=== PATIENT | female | born 1960 | race Caucasian/White ===

== ENCOUNTER 2016-10-14 14:03 | Outpatient (CLI) | payer OTHER | END 2016-10-14 14:04 | disposition home or self-care (01) | DX: Z12.31 Encounter for screening mammogram for malignant neoplasm of breast (principal) ==

== ENCOUNTER 2017-02-12 11:28 | Outpatient (CLI) | payer OTHER ==
[2017-02-12 17:59] LABS: BASOPHILS % (AUTO) 0.6 %; EOSINOPHILS # (AUTO) 0.2 10^3/uL (0.0-0.7); EOSINOPHILS % (AUTO) 3.5 %; HCT - HEMATOCRIT 44.7 % (37.0-47.0); HGB - HEMOGLOBIN 15.1 g/dL (12.0-16.0); LYMPHOCYTES # (AUTO) 2.6 10^3/uL (1.5-3.5); LYMPHOCYTES % (AUTO) 41.6 %; MEAN CORPUSCULAR HEMOGLOBIN 30.5 pg (27.0-31.0); MEAN CORPUSCULAR HGB CONC 33.7 g/dL (32.0-36.0); MEAN CORPUSCULAR VOLUME 90.6 fL (81.0-99.0); MEAN PLATELET VOLUME 9.3 fL (7.9-10.8); MONOCYTES # (AUTO) 0.5 10^3/uL (0.0-1.0); MONOCYTES % (AUTO) 7.7 %; NEUTROPHILS # (AUTO) 2.9 10^3/uL (1.5-6.6); NEUTROPHILS % (AUTO) 46.6 %; NUCLEATED RED BLOOD CELLS AUTO 0.1 /100WBC; RED BLOOD COUNT 4.94 10^6/uL (4.20-5.40); UNCORRECTED WHITE BLOOD COUNT 6.2 x10^3/uL; WHITE BLOOD COUNT 6.2 x10^3/uL (4.8-10.8)
[2017-02-12 18:09] LABS: ALBUMIN/GLOBULIN RATIO 1.6 (1.0-2.2); BILIRUBIN,TOTAL 0.3 mg/dL (0.2-1.0); CALCIUM 9.4 mg/dL (8.5-10.3); CREATININE 0.8 mg/dL (0.4-1.0); POTASSIUM 4.5 mmol/L (3.5-5.0); TOTAL PROTEIN 7.2 g/dL (6.7-8.2)
== END 2017-02-12 11:29 | disposition home or self-care (01) ==
LOC: LAB.F 11:28
PROVIDERS: ATTEND Internal Medicine
DX: Z79.899 Other long term (current) drug therapy (principal); Z13.29 Encounter for screening for other suspected endocrine disorder; N39.9 Disorder of urinary system, unspecified
CPT/HCPCS: 36415; 80053; 84443; 85025

== ENCOUNTER 2017-03-24 11:22 | Outpatient (CLI) | payer OTHER ==
--- NOTE | 2017-03-24 13:25 | Ultrasound Report ---
PELVIC ULTRASOUND: 03/24/2017 CLINICAL INDICATION: Irregular bleeding. TECHNIQUE: Transabdominal pelvic ultrasound performed for global evaluation. Transvaginal pelvic ul trasound performed for detailed evaluation. Real-time scanning performed and static images obtained. FINDINGS: The uterus is anteverted, measuring 7.4 x 3.8 x 3.3 cm. The endometrial echo complex treva ures 4 mm. A nabothian cyst is incidentally noted in the cervix. No focal myometrial lesion is seen . The right ovary measures 2.3 x 1.4 x 1.4 cm, and contains a 1-cm follicle. The left ovary measure s 1.5 x 1.2 x 0.7 cm, and appears unremarkable. No free fluid is present. IMPRESSION: NORMAL PELVIC ULTRASOUND. JOB #: [id number] EXT JOB #:[id number]
== END 2017-03-24 11:23 | disposition home or self-care (01) ==
LOC: DI 11:22
PROVIDERS: ATTEND Nurse Practitioner Obstetrics & Gynecology
DX: N92.5 Other specified irregular menstruation (principal)
CPT/HCPCS: 76830; 76856

== ENCOUNTER 2018-01-15 18:24 | Emergency (ER) | payer OTHER ==
[2018-01-15 19:28] LABS: GLUCOSE, URINE (UA) NEGATIVE (NEGATIVE); KETONES,URINE (UA) NEGATIVE (NEGATIVE); LEUKOCYTE ESTERASE, URINE NEGATIVE (NEGATIVE); NITRITE,URINE NEGATIVE (NEGATIVE); OCCULT BLOOD,URINE SMALL (NEGATIVE); PROTEIN,URINE TRACE mg/dL (NEGATIVE); UROBILINOGEN,URINE 2 E.U./dL (NORMAL)
[2018-01-15 19:36] LABS: BACTERIA,URINE None Seen /HPF (None Seen); BILIRUBIN,URINE NEGATIVE (NEGATIVE); CLARITY,URINE CLEAR (CLEAR); ICTOTEST,URINE NEGATIVE; RBC,URINE 0-5 /HPF (0-5); SQUAMOUS EPITHELIAL CELL,UR MOD Squamous (<= Few)
[2018-01-15] MEDS ORDERED: SODIUM CHLORIDE 0.9% 1,000 ML IV ONE (20:31)
[2018-01-15 20:49] LABS: BASOPHILS % (AUTO) 0.3 %; EOSINOPHILS # (AUTO) 0.1 10^3/uL (0.0-0.7); EOSINOPHILS % (AUTO) 2.5 %; HGB - HEMOGLOBIN 14.4 g/dL (12.0-16.0); LYMPHOCYTES # (AUTO) 1.6 10^3/uL (1.5-3.5); LYMPHOCYTES % (AUTO) 33.6 %; MEAN CORPUSCULAR HEMOGLOBIN 30.4 pg (27.0-31.0); MEAN CORPUSCULAR HGB CONC 33.7 g/dL (32.0-36.0); MEAN CORPUSCULAR VOLUME 90.2 fL (81.0-99.0); MEAN PLATELET VOLUME 8.6 fL (7.9-10.8); MONOCYTES # (AUTO) 0.4 10^3/uL (0.0-1.0); MONOCYTES % (AUTO) 8.5 %; NEUTROPHILS # (AUTO) 2.6 10^3/uL (1.5-6.6); NEUTROPHILS % (AUTO) 55.1 %; PLT - PLATELET COUNT 166 10^3/uL (130-450); RED BLOOD COUNT 4.74 10^6/uL (4.20-5.40); RED CELL DISTRIBUTION WIDTH 12.9 % (12.0-15.0); WHITE BLOOD COUNT 4.7 x10^3/uL (4.8-10.8)
[2018-01-15 21:26] LABS: ALBUMIN 4.3 g/dL (3.2-5.5); ALBUMIN/GLOBULIN RATIO 1.3 (1.0-2.2); BILIRUBIN,DIRECT 1.5 mg/dL (0.1-0.5); BILIRUBIN,TOTAL 2.6 mg/dL (0.2-1.0); CALCIUM 9.1 mg/dL (8.5-10.3); CREATININE 0.9 mg/dL (0.4-1.0); TOTAL PROTEIN 7.6 g/dL (6.7-8.2)
--- NOTE | 2018-01-15 21:35 | ED Physician Documentation ---
PD HPI ABD PAIN - Stated complaint Stated Complaint: BK PX/FEMALE - Chief complaint Chief Complaint: Back Pain - History obtained from History obtained from: Patient - History of Present Illness Timing - onset: How many days ago Timing - details: Intermittant, Waxing and waning Quality: Cramping, Aching Location: RUQ Radiation: Right flank Worsened by: Eating, Position Associated symptoms: Nausea, Diarrhea. No: Fever, Vomiting, Constipation Similar symptoms before: No diagnosis Recently seen: Not recently seen - Treatment prior to arrival Treatment prior to arrival: Patient is a 57 year old female with no significant past medical history who is presenting to the emergency department for right sided flank pain. Patient states that it has been going off and on for the last week. patient also reports some nausea with it and tactile fevers. Patient reports dark, foul smelling urine. Review of Systems Constitutional: reports: Fever, Chills Eyes: reports: Reviewed and negative Ears: reports: Reviewed and negative Cardiac: denies: Chest pain / pressure Respiratory: denies: Dyspnea, Cough GI: reports: Abdominal Pain, Nausea, Vomiting, Diarrhea : reports: Dysuria, Other (dark, foul smelling) Musculoskeletal: reports: Back pain Immunocompromised: denies: Immunocompromised PD PAST MEDICAL HISTORY - Past Medical History Past Medical History: Yes Cardiovascular: None, Other Respiratory: None GI: None : None HEENT: None Psych: Depression Musculoskeletal: Osteoarthritis, Chronic back pain, Other Derm: None - Past Surgical History 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 - Present Medications Home Medications: Ambulatory Orders Medication Instructions Recorded Confirmed Cyclobenzaprine [Flexeril] 1 tab ORAL QID 06/16/14 06/16/14 Estradiol 1 tab ORAL DAILY 06/16/14 06/16/14 Gabapentin 1 tab ORAL DAILY 06/16/14 06/16/14 medroxyPROGESTERone [Provera] 1 tab ORAL DAILY 06/16/14 06/16/14 oxyCODONE [Roxicodone] 0.5 tab ORAL DAILY 06/16/14 06/16/14 - Allergies Allergies/Adverse Reactions: Allergies Allergy/AdvReac Type Severity Reaction Status Date / Time No Known Drug Allergies Allergy Verified 02/04/13 11:00 - Social History Does the pt smoke?: Yes Smoking Status: Current every day smoker Does the pt drink ETOH?: Yes Does the pt have substance abuse?: Yes Substance Use and Type: Marijuana - Immunizations Immunizations are current?: No Immunizations: TDAP >10years/unknown - POLST Patient has POLST: No PD ED PE NORMAL - Vitals Vital signs reviewed: Yes - General General: Alert and oriented X 3 - HEENT HEENT: Atraumatic - Neck Neck: Supple, no meningeal sign - Cardiac Cardiac: RRR - Respiratory Respiratory: No respiratory distress - Abdomen Abdomen: Soft - Derm Derm: Normal color, Warm and dry - Extremities Extremities: No deformity - Neuro Neuro: Alert and oriented X 3, No motor deficit, Normal speech Eye Opening: Spontaneous PD ED PE EXPANDED - HEENT HEENT: Dry mucous membranes - Abdomen Abdomen: Tender to palpation, RUQ. No: Rebound, Guarding Results - Vitals Vitals: Vital Signs - 24 hr 01/15/18 01/15/18 18:39 22:34 Temperature 36.8 C 36.5 C Heart Rate 74 64 Respiratory 14 12 Rate Blood Pressure 144/85 H 142/73 H O2 Saturation 97 100 Oxygen O2 Source Room air - Labs Labs: Laboratory Tests 01/15/18 01/15/18 01/15/18 19:20 20:40 20:40 WBC 4.7 L RBC 4.74 Hgb 14.4 Hct 42.8 MCV 90.2 MCH 30.4 MCHC 33.7 RDW 12.9 Plt Count 166 MPV 8.6 Neut # 2.6 Lymph # 1.6 Cochran # 0.4 Eos # 0.1 Baso # 0.0 Absolute Nucleated RBC 0.00 Nucleated RBC % 0.0 Sodium 135 Potassium 3.6 Chloride 101 Carbon Dioxide 27 Anion Gap 7.0 BUN 14 Creatinine 0.9 Estimated GFR (MDRD) 65 L Glucose 111 H Calcium 9.1 Total Bilirubin 2.6 H Direct Bilirubin 1.5 H AST 482 H ALT 674 H Alkaline Phosphatase 116 Total Protein 7.6 Albumin 4.3 Globulin 3.3 Albumin/Globulin Ratio 1.3 Lipase 28 Urine Color YELLOW Urine Clarity CLEAR Urine pH 8.0 H Ur Specific [place] 1.010 Urine Protein TRACE Urine Glucose (UA) NEGATIVE Urine Ketones NEGATIVE Urine Occult Blood SMALL H Urine Nitrite NEGATIVE Urine Bilirubin NEGATIVE Urine Urobilinogen 2 H Ur Leukocyte Esterase NEGATIVE Urine RBC 0-5 Urine WBC 0-3 Ur Squamous Epith Cells MOD Squamous H Urine Bacteria None Seen Ur Microscopic Review INDICATED Urine Culture Comments NOT INDICATED - Rads (name of study) ct abdomen and pelvis Radiology: Final report received, See rad report PD MEDICAL DECISION MAKING - ED course Complexity details: reviewed old records, reviewed results, re-evaluated patient , considered differential, d/w patient, d/w underwriting consultant ED course: Patient was seen and examined at bedside. Urine had already been collected. there were no signs of infection but there was bilirubin in the urine. IV access was gained and labs were drawn. patient was treated with a fluid bolus and zofran. When patient's labs returned she was found to have a transaminitis and elevated direct and indirect bilirubin. CT was ordered. When patient returned from imaging the results were reviewed. Patient's gall bladder was full of stones, and there were stones in the common bile duct. Developing infection was also possible. Patient was a [facility] patient and the case was discussed with their animal surgeon physician. After multiple phone calls arrangements were made for follow up tomorrow with a GI doctor in [facility]. patient was given copy of her records and was given detailed discharge and follow up instructions. ptient required no further work up and was stable for discharge with outpatient follow up. Departure - Departure Disposition: Home, Self Care Clinical Impression: Choledocholithiasis Condition: Good Instructions: ED Gallstone W Biliary Colic Follow-Up: kiko lowery [Other] Comments: Your symptoms today are being caused by multiple stones in your gallbadder and stones in your common bile duct. You will need to call the office of Dr. Kiko Lowery tomorrow morning at 8am. The number is [phone]. You should not eat anything tonight. You should bring your discs and your results with you. You may return to the emergency department at any time for new, worsening or uncontrollable symptoms. Discharge Date/Time: 01/16/18 00:52
[2018-01-15] MEDS ORDERED: IOPAMIDOL-300 100 ML VIAL ONE (21:56)
[2018-01-15 22:36] VITALS: BP 142/73
--- NOTE | 2018-01-15 22:40 | CT Report ---
EXAM: CT ABDOMEN AND PELVIS EXAM DATE: 01/15/2018 10:18 PM. CLINICAL HISTORY: Abd pain, transaminitis. COMPARISONS: None. TECHNIQUE: Routine helical CT imaging was performed through the abdomen and pelvis. IV contrast: 100M L ISOVUE 300. Enteric contrast: No. Reconstructions: Coronal and sagittal. In accordance with CT protocol optimization, one or more of the following dose reduction techniques w ere utilized for this exam: automated exposure control, adjustment of mA and/or KV based on patient s ize, or use of iterative reconstructive technique. FINDINGS: ABDOMEN: Lung Bases: Incompletely included lower lungs are grossly clear. Heart size is within normal limits. No basilar effusions. Liver: Unremarkable. Spleen: Unremarkable. Pancreas: Unremarkable. Gallbladder/Bile Ducts: Gallbladder is diffusely full of gallstones. Wall is enhancing with mild surr ounding pericholecystic inflammatory change. There is no gallbladder distention. There is common bile duct dilatation to 1 cm. There is choledocholithiasis with a couple stones visible in the distal com mon bile duct. Adrenal Glands: Unremarkable. Kidneys: No mass, calculi, or hydronephrosis. Peritoneum/Mesentery/Bowel: No free fluid, free air, or collection. No intestinal obstruction or inflammation. The appendix is within normal limits. Lymph nodes: No mesenteric, periportal, or retroperitoneal lymphadenopathy. Retroperitoneum: Abdominal aorta is nonaneurysmal. Portal vein is patent. Hepatic veins are patent. PELVIS: The bladder is unremarkable for the degree of distention. Uterus is present. No obvious abnor brenton enlarged adnexal masses or cysts. No pelvic lymphadenopathy. Bones: No suspicious osseous lesions. IMPRESSION: Choledocholithiasis and common bile duct dilatation. Gallbladder diffusely full of gallstones. Mild p ericholecystic stranding and enhancing gallbladder wall. Developing acute cholecystitis is not exclud ed. [facility] Referring Provider Line: [phone] SITE ID: [id number]
[2018-01-15] MEDS ORDERED: ONDANSETRON 4 MG/2 ML VIAL IVP STA (23:58)
[2018-01-16] MEDS ORDERED: IOPAMIDOL-300 100 ML VIAL IVP ONE (00:01)
[2018-01-16] MEDS ORDERED: ONDANSETRON ODT 4 MG Prepack 2 TL STA (00:34)
[2018-01-17 12:51] LABS: HEPATITIS A IGM NON-REACTIVE (NON-REACTIVE); HEPATITIS B CORE ANTIBODY IGM NON-REACTIVE (NON-REACTIVE); HEPATITIS B SURFACE ANTIGEN NON-REACTIVE (NON-REACTIVE); HEPATITIS C ANTIBODY NON-REACTIVE (NON-REACTIVE)
== END 2018-01-16 00:52 | disposition home or self-care (01) ==
LOC: ED 18:24
DX: K80.70 Calculus of gallbladder and bile duct without cholecystitis without obstruction (principal); F17.200 Nicotine dependence, unspecified, uncomplicated
CPT/HCPCS: 36415; 74177; 80053; 80074; 81001; 82248; 83690; 85025; 96361; 96374; 99283; 99284; Q9967; 81003; 87086

== ENCOUNTER 2018-01-20 12:12 | Outpatient (CLI) | payer OTHER ==
[2018-01-20 17:39] LABS: BASOPHILS % (AUTO) 0.4 %; EOSINOPHILS # (AUTO) 0.1 10^3/uL (0.0-0.7); EOSINOPHILS % (AUTO) 1.9 %; HGB - HEMOGLOBIN 14.2 g/dL (12.0-16.0); LYMPHOCYTES % (AUTO) 26.8 %; MEAN CORPUSCULAR HEMOGLOBIN 30.3 pg (27.0-31.0); MEAN CORPUSCULAR VOLUME 91.8 fL (81.0-99.0); MEAN PLATELET VOLUME 9.4 fL (7.9-10.8); MONOCYTES # (AUTO) 0.7 10^3/uL (0.0-1.0); MONOCYTES % (AUTO) 8.7 %; NEUTROPHILS # (AUTO) 4.7 10^3/uL (1.5-6.6); NEUTROPHILS % (AUTO) 62.2 %; PLT - PLATELET COUNT 196 10^3/uL (130-450); RED BLOOD COUNT 4.69 10^6/uL (4.20-5.40); RED CELL DISTRIBUTION WIDTH 13.1 % (12.0-15.0); WHITE BLOOD COUNT 7.5 x10^3/uL (4.8-10.8)
[2018-01-20 18:16] LABS: ALBUMIN 4.1 g/dL (3.2-5.5); ALBUMIN/GLOBULIN RATIO 1.1 (1.0-2.2); BILIRUBIN,TOTAL 1.1 mg/dL (0.2-1.0); CALCIUM 9.4 mg/dL (8.5-10.3); CREATININE 0.8 mg/dL (0.4-1.0); TOTAL PROTEIN 7.7 g/dL (6.7-8.2)
== END 2018-01-20 12:13 | disposition home or self-care (01) ==
LOC: LAB.F 12:12
PROVIDERS: ATTEND Internal Medicine
DX: K80.61 Calculus of gallbladder and bile duct with cholecystitis, unspecified, with obstruction (principal)
CPT/HCPCS: 36415; 80053; 85025

== ENCOUNTER 2018-02-11 10:24 | Outpatient (CLI) | payer OTHER ==
[2018-02-11 17:29] LABS: BASOPHILS % (AUTO) 0.4 %; EOSINOPHILS # (AUTO) 0.2 10^3/uL (0.0-0.7); EOSINOPHILS % (AUTO) 3.3 %; HGB - HEMOGLOBIN 14.5 g/dL (12.0-16.0); LYMPHOCYTES # (AUTO) 2.1 10^3/uL (1.5-3.5); LYMPHOCYTES % (AUTO) 38.2 %; MEAN CORPUSCULAR HGB CONC 33.1 g/dL (32.0-36.0); MEAN CORPUSCULAR VOLUME 93.7 fL (81.0-99.0); MEAN PLATELET VOLUME 9.6 fL (7.9-10.8); MONOCYTES # (AUTO) 0.4 10^3/uL (0.0-1.0); MONOCYTES % (AUTO) 7.4 %; NEUTROPHILS # (AUTO) 2.8 10^3/uL (1.5-6.6); NEUTROPHILS % (AUTO) 50.7 %; PLT - PLATELET COUNT 148 10^3/uL (130-450); RED BLOOD COUNT 4.68 10^6/uL (4.20-5.40); RED CELL DISTRIBUTION WIDTH 13.2 % (12.0-15.0); WHITE BLOOD COUNT 5.5 x10^3/uL (4.8-10.8)
[2018-02-11 17:47] LABS: ALBUMIN 4.1 g/dL (3.2-5.5); ALBUMIN/GLOBULIN RATIO 1.3 (1.0-2.2); ALKALINE PHOSPHATASE 67 IU/L (42-121); ALT ALANINE AMINOTRANSFERASE 33 IU/L (10-60); AST ASPARTATE AMINOTRANSFERASE 22 IU/L (10-42); BILIRUBIN,TOTAL 0.7 mg/dL (0.2-1.0); BUN - BLOOD UREA NITROGEN 19 mg/dL (6-20); CARBON DIOXIDE - CO2 27 mmol/L (21-32); CHLORIDE 102 mmol/L (101-111); CHOL/HDL RATIO 6.4 (<4.4); CHOLESTEROL 307 mg/dL; CREATININE 0.8 mg/dL (0.4-1.0); GFR - MDRD 74 (>89); GLUCOSE 92 mg/dL (70-100); HDL CHOLESTEROL 48 mg/dL; SODIUM 136 mmol/L (135-145); TOTAL PROTEIN 7.3 g/dL (6.7-8.2)
[2018-02-11 18:09] LABS: LDL CHOLESTEROL,DIRECT 175 mg/dL; LDLD/HDL RATIO 3.6 (<4.4)
== END 2018-02-11 10:25 | disposition home or self-care (01) ==
LOC: LAB.F 10:24
PROVIDERS: ATTEND Physician Assistant Medical
DX: Z00.00 Encounter for general adult medical examination without abnormal findings (principal); E78.5 Hyperlipidemia, unspecified
CPT/HCPCS: 36415; 80053; 80061; 83721; 84443; 85025

== ENCOUNTER 2018-03-14 16:27 | Emergency (ER) | payer OTHER ==
--- NOTE | 2018-03-14 16:44 | ED Physician Documentation ---
PD HPI ABD PAIN - Stated complaint Stated Complaint: NAUSEA/DIZZY/ABD PX - Chief complaint Chief Complaint: Abd Pain - History obtained from History obtained from: Patient - History of Present Illness Timing - onset: Yesterday (57-year-old woman who a couple of months ago had choledocholithiasis and had ERCP followed a day later by cholecystectomy and was feeling great for a month that started having recurrent symptoms about a month ago and over the last 24 hours has had more significant but still intermittent bandlike upper abdominal pain radiating to the back not related to eating with mild nausea but no vomiting. No fevers. Feels reminiscent of prior choledocholithiasis.) Review of Systems Ten Systems: 10 systems reviewed and negative Constitutional: denies: Fever, Chills Cardiac: denies: Chest pain / pressure, Palpitations Respiratory: denies: Dyspnea, Cough GI: reports: Abdominal Pain, Nausea. 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 - Present Medications Home Medications: Ambulatory Orders Medication Instructions Recorded Confirmed Cyclobenzaprine [Flexeril] 1 tab ORAL QID 06/16/14 06/16/14 Estradiol 1 tab ORAL DAILY 06/16/14 06/16/14 Gabapentin 1 tab ORAL DAILY 06/16/14 06/16/14 medroxyPROGESTERone [Provera] 1 tab ORAL DAILY 06/16/14 06/16/14 oxyCODONE [Roxicodone] 0.5 tab ORAL DAILY 06/16/14 06/16/14 - Allergies Allergies/Adverse Reactions: Allergies Allergy/AdvReac Type Severity Reaction Status Date / Time No Known Drug Allergies Allergy Verified 03/14/18 16:31 - Social History Does the pt smoke?: Yes Smoking Status: Current every day smoker Does the pt drink ETOH?: Yes Does the pt have substance abuse?: Yes - Family History Family history: reports: Non contributory - Immunizations Immunizations are current?: No Immunizations: TDAP >10years/unknown - POLST Patient has POLST: No PD ED PE NORMAL - Vitals Vital signs reviewed: Yes - General General: Alert and oriented X 3, No acute distress - HEENT HEENT: PERRL, EOMI - Neck Neck: Supple, no meningeal sign, No bony TTP - Cardiac Cardiac: RRR, No murmur - Respiratory Respiratory: No respiratory distress, Clear bilaterally - Abdomen Abdomen: Normal bowel sounds, Soft, Non tender - Back Back: No CVA TTP, No spinal TTP - Derm Derm: Normal color, Warm and dry - Extremities Extremities: No edema, No calf tenderness / cord - Neuro Neuro: Alert and oriented X 3, Normal speech - Psych Psych: Normal mood, Normal affect Results - Vitals Vitals: Vital Signs - 24 hr 03/14/18 03/14/18 16:29 20:04 Temperature 36.0 C L Heart Rate 63 64 Respiratory 16 17 Rate Blood Pressure 123/75 136/78 H O2 Saturation 100 98 Oxygen O2 Source Room air - Labs Labs: Laboratory Tests 03/14/18 03/14/18 17:15 17:15 WBC 5.1 RBC 4.83 Hgb 14.9 Hct 44.5 MCV 92.2 MCH 30.8 MCHC 33.4 RDW 13.3 Plt Count 187 MPV 8.8 Neut # (Auto) 3.3 Lymph # (Auto) 1.3 L Fleming # (Auto) 0.4 Eos # (Auto) 0.0 Baso # (Auto) 0.0 Absolute Nucleated RBC 0.00 Nucleated RBC % 0.0 Sodium 135 Potassium 3.8 Chloride 101 Carbon Dioxide 25 Anion Gap 9.0 BUN 13 Creatinine 0.8 Estimated GFR (MDRD) 74 L Glucose 94 Calcium 10.0 Total Bilirubin 3.5 H AST 624 H ALT 616 H Alkaline Phosphatase 104 Total Protein 8.0 Albumin 4.5 Globulin 3.5 Albumin/Globulin Ratio 1.3 Lipase 25 - Rads (name of study) RUQ sono Radiology: EMP read contemporaneously (Common bile duct prominence measuring 10 mm, no obvious choledocholithiasis or intrahepatic ductal dilatation, fatty liver.) PD MEDICAL DECISION MAKING - ED course ED course: 57-year-old woman who 2 months ago had choledocholithiasis with an ERCP followed by interval cholecystectomy had done well until she had increasing pain and now over the last 24 hours severe pain consistent with prior episode of choledocholithiasis although she declines pain and nausea medicine on initial evaluation. Nontender. Ultrasound does not show cleared choledocholithiasis but her labs do show an obstructive pattern again, noting that her alkaline phosphatase is normal, but was normal on day 1 as well. I spoke with Dr. Davidson, the on-call tunnel elastic operator lockstitch for [place] who recommended transfer to a facility capable of expedited ERCP or MRCP. She recommends against abx at this juncture. Spoke with Dr Sanches, resolution expert for [place] who will arrange for accepting MD and transport at 1918. Accepted by Dr. Miranda [facility] at 1999 and cobras were completed. - Sepsis Event Vital Signs: Vital Signs - 24 hr 03/14/18 03/14/18 16:29 20:04 Temperature 36.0 C L Heart Rate 63 64 Respiratory 16 17 Rate Blood Pressure 123/75 136/78 H O2 Saturation 100 98 Oxygen O2 Source Room air Departure - Departure Disposition: 02 Transfer Acute Care Hosp Clinical Impression: Biliary obstruction Condition: Stable
[2018-03-14 17:23] LABS: BASOPHILS % (AUTO) 0.4 %; EOSINOPHILS % (AUTO) 0.9 %; HGB - HEMOGLOBIN 14.9 g/dL (12.0-16.0); LYMPHOCYTES # (AUTO) 1.3 10^3/uL (1.5-3.5); LYMPHOCYTES % (AUTO) 26.5 %; MEAN CORPUSCULAR HEMOGLOBIN 30.8 pg (27.0-31.0); MEAN CORPUSCULAR HGB CONC 33.4 g/dL (32.0-36.0); MEAN CORPUSCULAR VOLUME 92.2 fL (81.0-99.0); MEAN PLATELET VOLUME 8.8 fL (7.9-10.8); MONOCYTES # (AUTO) 0.4 10^3/uL (0.0-1.0); MONOCYTES % (AUTO) 7.6 %; NEUTROPHILS # (AUTO) 3.3 10^3/uL (1.5-6.6); NEUTROPHILS % (AUTO) 64.6 %; PLT - PLATELET COUNT 187 10^3/uL (130-450); RED BLOOD COUNT 4.83 10^6/uL (4.20-5.40); RED CELL DISTRIBUTION WIDTH 13.3 % (12.0-15.0); WHITE BLOOD COUNT 5.1 x10^3/uL (4.8-10.8)
[2018-03-14 17:40] LABS: ALBUMIN 4.5 g/dL (3.2-5.5); ALBUMIN/GLOBULIN RATIO 1.3 (1.0-2.2); BILIRUBIN,TOTAL 3.5 mg/dL (0.2-1.0); CREATININE 0.8 mg/dL (0.4-1.0)
--- NOTE | 2018-03-14 18:45 | Ultrasound Report ---
Procedure Date: 03/14/2018 Accession Number: [id number] / [id number] Procedure: US - Abdomen Limited CPT Code: FULL RESULT: EXAM: ABDOMEN ULTRASOUND LIMITED, RUQ EXAM DATE: 03/14/2018 05:30 PM. CLINICAL HISTORY: RUQ pain, similar to prior CBD stone, eval CBD. COMPARISON: No ultrasound comparison. CT abdomen and pelvis 01/15/2018. TECHNIQUE: Real-time scanning was performed with static images obtained. FINDINGS: Liver: Pattern consistent with diffuse fatty infiltration redemonstrated. No mass. 15.3 cm. Main portal vein flow: Hepatopetal. Gallbladder: Surgical absent. Biliary System: CBD measures 10 mm, possibly without substantial interval change. No intrahepatic ductal dilatation Other: Right kidney appears unremarkable. No free fluid. IMPRESSION: 1. Status post cholecystectomy. Common bile duct prominence, measuring 10 mm. This is probably without substantial change and may not be clinically significant given the surgical history. No intrahepatic ductal dilatation. Clinical correlation recommended. 2. Diffuse fatty infiltration liver redemonstrated. [facility]
[2018-03-14] MEDS: SODIUM CHLORIDE 0.9% 1,000 ML IV ONE (20:20)
[2018-03-14] MEDS: ONDANSETRON 4 MG/2 ML VIAL IVP STA (22:05)
[2018-03-14 22:13] VITALS: BP 129/60
== END 2018-03-14 22:10 | disposition short-term general hospital (02) ==
LOC: ED 16:27
DX: K83.1 Obstruction of bile duct (principal); K76.0 Fatty (change of) liver, not elsewhere classified
CPT/HCPCS: 36415; 76705; 80053; 83690; 85025; 96361; 96374; 99283; 99284

== ENCOUNTER 2018-03-23 15:53 | Outpatient (CLI) | payer OTHER ==
[2018-03-23 19:33] LABS: ALBUMIN/GLOBULIN RATIO 1.2 (1.0-2.2); BILIRUBIN,TOTAL 0.7 mg/dL (0.2-1.0); CALCIUM 9.2 mg/dL (8.5-10.3); CREATININE 0.8 mg/dL (0.4-1.0); TOTAL PROTEIN 7.3 g/dL (6.7-8.2)
== END 2018-03-23 15:54 | disposition home or self-care (01) ==
LOC: LAB.R 15:53
PROVIDERS: ATTEND Internal Medicine
DX: K80.61 Calculus of gallbladder and bile duct with cholecystitis, unspecified, with obstruction (principal)
CPT/HCPCS: 80053

== ENCOUNTER 2018-08-06 17:53 | Outpatient (CLI) | payer OTHER ==
--- NOTE | 2018-08-07 19:03 | MRI Report ---
Reason: BACK PAIN WITH RADICULOPATHY Procedure Date: 08/06/2018 Accession Number: [id number] / [id number] Procedure: MRI - Lumbar Spine W/O CPT Code: FULL RESULT: EXAM: MRI LUMBAR SPINE WITHOUT CONTRAST EXAM DATE: 08/06/2018 06:10 PM. CLINICAL HISTORY: Back pain with radiculopathy. COMPARISON: None. TECHNIQUE: Multiplanar, multisequence T1-weighted and fluid-sensitive sequences of the lumbar spine from T12 to S1 without contrast. Other: None. FINDINGS: Spinal Canal: The conus terminates at L1. The conus medullaris and cauda equina are unremarkable. Alignment: No scoliosis or spondylolisthesis. Bone Marrow: Five [id number] lumbar vertebral bodies are assumed. No gross fractures or bone lesions. No bone marrow replacement. Disk Levels/Facets: T12-L1: Unremarkable. L1-L2: Moderate disk degeneration. Negative for spinal canal stenosis or foraminal stenosis. L2-L3: Unremarkable. L3-L4: Mild right facet joint arthrosis. Negative for spinal canal stenosis or foraminal stenosis. Preservation of disk height. L4-L5: Left posterolateral 2 mm disk protrusion. Negative for spinal canal stenosis or foraminal stenosis. Mild facet joint arthrosis. L5-S1: Posterior right paracentral 2 mm disk protrusion with small high signal annular fissure. Negative for spinal canal stenosis or foraminal stenosis. Mild left facet joint arthrosis. Musculature: Normal. No edema or fatty atrophy. Other: The partially visualized retroperitoneum is unremarkable. IMPRESSION: Unremarkable lumbar spine MRI. Comment: The following findings are so common in adults without low back pain that while we report their presence, they must be interpreted with caution and in the context of the clinical situation. (Reference Shyannk et al, Spine 2001) Prevalence of findings in patients without low back pain: Disk degeneration (any evidence): 92% Disk desiccation/T2 signal loss: 83% Disk height loss: 56% Disk bulge: 64% Disk protrusion: 32% Annular tear/high intensity zone: 38% [facility]
== END 2018-08-06 17:54 | disposition home or self-care (01) ==
LOC: DI 17:53
PROVIDERS: ATTEND Physician Assistant Medical
DX: M51.16 Intervertebral disc disorders with radiculopathy, lumbar region (principal); M51.17 Intervertebral disc disorders with radiculopathy, lumbosacral region
CPT/HCPCS: 72148

== ENCOUNTER 2018-08-31 12:56 | Outpatient (CLI) | payer OTHER ==
[2018-08-31 19:03] LABS: HGB - HEMOGLOBIN 14.4 g/dL (12.0-16.0); MEAN CORPUSCULAR HEMOGLOBIN 30.8 pg (27.0-31.0); MEAN CORPUSCULAR HGB CONC 33.5 g/dL (32.0-36.0); MEAN CORPUSCULAR VOLUME 92.1 fL (81.0-99.0); MEAN PLATELET VOLUME 8.7 fL (7.9-10.8); RED BLOOD COUNT 4.67 10^6/uL (4.20-5.40); RED CELL DISTRIBUTION WIDTH 13.3 % (12.0-15.0); WHITE BLOOD COUNT 7.7 x10^3/uL (4.8-10.8)
[2018-08-31 19:06] LABS: CRP - C-REACTIVE PROTEIN 1.4 mg/dL (0-1.0)
[2018-08-31 21:06] LABS: RHEUMATOID FACTOR NEGATIVE (Negative)
== END 2018-08-31 12:57 | disposition home or self-care (01) ==
LOC: LAB.F 12:56
PROVIDERS: ATTEND Physician Assistant Medical
DX: M25.50 Pain in unspecified joint (principal); M54.2 Cervicalgia
CPT/HCPCS: 36415; 84550; 85025; 85027; 85651; 86038; 86140; 86200; 86430

== ENCOUNTER 2019-06-21 15:05 | Outpatient (CLI) | payer OTHER ==
--- NOTE | 2019-06-21 17:12 | Ultrasound Report ---
Reason: MULTIPLE THYROID NODULES, PARATHYROID ABNORMALITY Procedure Date: 06/21/2019 Accession Number: [id number] / [id number] Procedure: US - Head or Neck Soft Tissue CPT Code: FULL RESULT: EXAM: THYROID ULTRASOUND EXAM DATE: 06/21/2019 04:00 PM. CLINICAL HISTORY: MULTIPLE THYROID NODULES, PARATHYROID ABNORMALITY. For follow-up COMPARISON: HEAD OR NECK SOFT TISSUE 04/01/2016 1:50 PM. Thyroid ultrasound 12/15/2013 TECHNIQUE: Real time sonographic imaging of the thyroid was performed by the slat basket maker. Multiple sales representative facility services static images were saved for review. FINDINGS: THYROID GLAND: Right Lobe: 5.2 x 1.6 x 1.4 cm, volume 6.1 cc. Normal background echotexture. Right Lobe Nodules: None. 1. Iso-to hypoechoic vascular lower pole nodule currently measures 1.9 x 0.9 x 1.1 cm, previously 0.9 x 0.8 x 0.4 cm on 04/01/2016 and 0.9 x 0.8 x 1.3 cm on 12/15/2013. 2. Posterior midpole hypoechoic solid nodule currently 0.9 x 0.7 x 0.7 cm, essentially stable compared to the 12/15/2013. The measurements reported of the 04/01/2016 ultrasound likely overestimated the size of the lesion. Left Lobe: 3.6 x 1.2 x 1 cm, volume 2.2 cc. Normal background echotexture. Left Lobe Nodules: Dominant midportion predominantly isoechoic vascular nodule currently measures 1 x 0.8 x 0.8 cm, essentially stable compared to the prior 2 studies allowing for technical variation. Isthmus: 0.3 cm AP. Isthmic Nodules: None. LYMPH NODES: No adenopathy demonstrated in the central or lateral compartment. OTHER: None. IMPRESSION: 1. The dominant left thyroid nodule and the midpole hypoechoic posterior right lobe nodule appear stable compared with 2013 allowing for technical variation. 2. The iso-to hypoechoic vascular right lower pole nodule appears to have increased slightly in length compared with 2014, currently measuring 1.9 x 0.9 x 1.1 cm, previously 1.3 x 0.9 x 0.8 cm. The nodule is somewhat ill-defined and precise measurements may vary slightly. Recommend follow-up thyroid ultrasound in 12 months. Management recommendations are based on 2015 [place] [employer] Management Guidelines for Adult Patients with Thyroid Nodules and Differentiated Thyroid Cancer. [facility]
== END 2019-06-21 15:06 | disposition home or self-care (01) ==
LOC: DI 15:05
PROVIDERS: ATTEND Physician Assistant Medical
DX: E04.2 Nontoxic multinodular goiter (principal); E21.5 Disorder of parathyroid gland, unspecified
CPT/HCPCS: 76536

== ENCOUNTER 2019-08-30 11:03 | Outpatient (CLI) | payer OTHER ==
[2019-08-30 17:29] LABS: BASOPHILS % (AUTO) 0.4 %; EOSINOPHILS # (AUTO) 0.2 10^3/uL (0.0-0.7); EOSINOPHILS % (AUTO) 1.9 %; HGB - HEMOGLOBIN 15.2 g/dL (12.0-16.0); LYMPHOCYTES # (AUTO) 2.6 10^3/uL (1.5-3.5); LYMPHOCYTES % (AUTO) 30.4 %; MEAN CORPUSCULAR HEMOGLOBIN 30.3 pg (27.0-31.0); MEAN CORPUSCULAR VOLUME 91.8 fL (81.0-99.0); MEAN PLATELET VOLUME 10.4 fL (7.9-10.8); MONOCYTES # (AUTO) 0.6 10^3/uL (0.0-1.0); MONOCYTES % (AUTO) 6.4 %; NEUTROPHILS # (AUTO) 5.2 10^3/uL (1.5-6.6); NEUTROPHILS % (AUTO) 60.5 %; PLT - PLATELET COUNT 212 10^3/uL (130-450); RED BLOOD COUNT 5.02 10^6/uL (4.20-5.40); RED CELL DISTRIBUTION WIDTH 12.7 % (12.0-15.0); WHITE BLOOD COUNT 8.5 x10^3/uL (4.8-10.8)
[2019-08-30 18:20] LABS: ALBUMIN 4.5 g/dL (3.2-5.5); ALBUMIN/GLOBULIN RATIO 1.5 (1.0-2.2); ALKALINE PHOSPHATASE 50 IU/L (42-121); ALT ALANINE AMINOTRANSFERASE 28 IU/L (10-60); AST ASPARTATE AMINOTRANSFERASE 22 IU/L (10-42); BILIRUBIN,TOTAL 0.6 mg/dL (0.2-1.0); BUN - BLOOD UREA NITROGEN 19 mg/dL (6-20); CALCIUM 9.5 mg/dL (8.5-10.3); CARBON DIOXIDE - CO2 26 mmol/L (21-32); CHLORIDE 104 mmol/L (101-111); CHOL/HDL RATIO 5.8 (<4.4); CHOLESTEROL 288 mg/dL; CREATININE 0.8 mg/dL (0.4-1.0); GFR - MDRD 74 (>89); GLUCOSE 109 mg/dL (70-100); HDL CHOLESTEROL 50 mg/dL; SODIUM 139 mmol/L (135-145); TOTAL PROTEIN 7.6 g/dL (6.7-8.2)
[2019-08-30 19:43] LABS: LDL CHOLESTEROL,DIRECT 175 mg/dL; LDLD/HDL RATIO 3.5 (<4.4)
== END 2019-08-30 11:04 | disposition home or self-care (01) ==
LOC: LAB.S 11:03
PROVIDERS: ATTEND Physician Assistant Medical
DX: Z51.81 Encounter for therapeutic drug level monitoring (principal); E78.5 Hyperlipidemia, unspecified; Z79.890 Hormone replacement therapy; E04.2 Nontoxic multinodular goiter
CPT/HCPCS: 36415; 80053; 80061; 82670; 83721; 84443; 85025

== ENCOUNTER 2019-10-18 11:04 | Outpatient (CLI) | payer OTHER ==
--- NOTE | 2019-10-26 12:58 | Mammography Report ---
Reason: ROUTINE MAMMO Procedure Date: 10/18/2019 Accession Number: [id number] / [id number] Procedure: GABRIELLE - Screening Mammo w/Kb CPT Code: Final Report FULL RESULT: EXAM: Screening Mammo w/Kb DATE: 10/18/2019 11:44 AM CLINICAL HISTORY: Screening encounter. TECHNIQUE: (B) - Bilateral CC and MLO views were obtained. COMPARISON: 10/14/2016 through 02/05/2010. PARENCHYMAL PATTERN: (D) - The breast(s) demonstrate(s) heterogeneously dense fibroglandular parenchyma. FINDINGS: There are no suspicious masses, calcifications, or areas of distortion. IMPRESSION: Negative examination. BI-RADS category 1. RECOMMENDATION: (ANNUAL) - Recommend routine annual screening mammography. BI-RADS CATEGORY: (1) - Negative. STANDARD QUALIFYING STATEMENTS: 1. This examination was not reviewed with the aid of Computer-Aided Detection (CAD). 2. A negative or benign imaging report should not preclude biopsy if clinically suspicious findings are present. 3. Dense breasts may obscure an underlying neoplasm. 4. This examination was reviewed with the aid of 3D breast imaging (tomosynthesis).
== END 2019-10-18 11:05 | disposition home or self-care (01) ==
LOC: DI 11:04
PROVIDERS: ATTEND Physician Assistant Medical
DX: Z12.31 Encounter for screening mammogram for malignant neoplasm of breast (principal)
CPT/HCPCS: 77063; 77067

== ENCOUNTER 2020-04-05 08:00 | Outpatient (CLI) | payer OTHER | END 2020-04-05 08:01 | disposition home or self-care (01) | LOC: LAB.R 08:00 | PROVIDERS: ATTEND Physician Assistant | DX: N39.0 Urinary tract infection, site not specified (principal) | CPT/HCPCS: 87077; 87086; 87181 ==

== ENCOUNTER 2020-04-24 12:49 | Outpatient (CLI) | payer OTHER ==
--- NOTE | 2020-04-24 16:54 | MRI Report ---
PROCEDURE: Cervical Spine W/O INDICATIONS: CERVICAL DISC DISORDER WITH RADICULOPATHY TECHNIQUE: Noncontrast sagittal T1 spin echo and T2 fast spin echo, sagittal STIR, foraminal oblique sagittal T2 fast spin echo, and axial gradient echo or T2 fast spin echo through the cervical spine. COMPARISON: None. FINDINGS: Image quality: Excellent. Alignment and Curvature: There is loss of normal cervical lordosis. There is mild grade 1 retrolisth esis of C5 on C6 and C6 on C7. Bone Marrow: Marrow demonstrates normal overall signal. There is mild reactive signal within the en dplates adjacent to the C4-C5, C5-C6, and C6-C7 intervertebral discs. Spinal Cord: Visualized spinal cord has normal size and signal. No cerebellar tonsillar herniation. Paraspinous Soft Tissues: No paravertebral masses. Prevertebral soft tissues are normal in thicknes s. C2-C3: Normal in appearance. C3-C4: Mild disc desiccation. Mild facet and uncovertebral hypertrophy bilaterally. Mild canal sten osis. Mild bilateral foraminal stenosis. C4-C5: Mild disc desiccation and diffuse disc bulge. Mild bilateral facet and uncovertebral hypertro phy. Mild canal stenosis. Mild bilateral foraminal stenosis. C5-C6: Mild disc height loss and desiccation. Mild diffuse disc bulge. Mild facet and uncovertebral hypertrophy bilaterally. Moderate canal stenosis. Mild bilateral foraminal stenosis. C6-C7: Moderate disc height loss and desiccation. Moderate facet and uncovertebral hypertrophy bilat erally. Moderate diffuse disc bulge. Moderate canal stenosis. Severe bilateral foraminal stenosis wit h bilateral C7 nerve root compression. C7-T1: Mild disc desiccation. Mild facet and uncovertebral hypertrophy bilaterally. Mild canal steno sis. Mild bilateral foraminal stenosis. IMPRESSION: 1. Multilevel degenerative disc and facet disease, as well as uncovertebral and facet hypertrophy. 2. Multilevel canal stenoses, worst at C5-C6 and C6-C7, where there are moderate canal stenoses prese nt. 3. Multilevel foraminal stenoses, worst at C6-C7 where there is associated intraforaminal nerve root compression. Recommend correlation with clinical symptoms to ascertain relevance of this finding. Reviewed by: Amber Earl MD on 04/24/2020 4:52 PM PDT Approved by: Amber Earl MD on 04/24/2020 4:52 PM PDT Station ID: [id number]
== END 2020-04-24 12:50 | disposition home or self-care (01) ==
LOC: DI 12:49
PROVIDERS: ATTEND Physician Assistant Medical
DX: M50.122 Cervical disc disorder at C5-C6 level with radiculopathy (principal); M48.02 Spinal stenosis, cervical region
CPT/HCPCS: 72141

== ENCOUNTER 2021-04-18 11:18 | Emergency (ER) | payer OTHER ==
--- NOTE | 2021-04-18 11:39 | ED Physician Documentation ---
PD HPI BACK PAIN - Stated complaint Stated Complaint: BACK PX - Chief complaint Chief Complaint: Back Pain - History obtained from History obtained from: Patient - History of Present Illness Timing - onset: How many days ago (4) Timing - duration: Days (4) Timing - details: Abrupt onset (just bent over to lift something light and pain onset left lower back. Persistent with movement. Had URI 3 weeks ago/COVID, and improved, but did have forceful cough for awhile.), Still present Location: Lower, Left Quality: Pain, Spasm Associated symptoms: No: Fever, Weakness, Numbness Worsened by: Movement Contributing factors: Lifting. No: Trauma Similar symptoms before: Has not had sx before Recently seen: Clinic (COVID 3 weeks ago, recovered without symptoms now. Had lot of coughing for awhile.) Review of Systems Constitutional: denies: Fever, Chills Nose: denies: Rhinorrhea / runny nose, Congestion Throat: denies: Sore throat Respiratory: denies: Cough GI: denies: Abdominal Pain, Nausea, Vomiting, Diarrhea : denies: Dysuria, Frequency Skin: denies: Rash, Lesions PD PAST MEDICAL HISTORY - Past Medical History Cardiovascular: None, Other Respiratory: None GI: None : None HEENT: None Psych: Depression Musculoskeletal: Osteoarthritis, Chronic back pain, Other Derm: None - Past Surgical History Past Surgical History: Yes General: Cholecystectomy /TALENT SOURCER: section - Present Medications Home Medications: Ambulatory Orders Medication Instructions Recorded Confirmed Cyclobenzaprine [Flexeril] 1 tab ORAL QID 06/16/14 04/18/21 Gabapentin 1 tab ORAL DAILY 06/16/14 04/18/21 estradioL [Estradiol] 1 tab ORAL DAILY 06/16/14 04/18/21 medroxyPROGESTERone [Provera] 1 tab ORAL DAILY 06/16/14 04/18/21 Lidocaine Patch 5% [Lidoderm Patch] 1 patch TOP DAILY PRN #10 patch 04/18/21 diazePAM [Valium] 5 mg PO TID PRN #20 tablet 04/18/21 oxyCODONE [Roxicodone] 5 mg PO Q4-6H PRN #18 tablet 04/18/21 - Allergies Allergies/Adverse Reactions: Allergies Allergy/AdvReac Type Severity Reaction Status Date / Time No Known Drug Allergies Allergy Verified 04/18/21 11:33 - Social History Does the pt smoke?: Yes Smoking Status: Current every day smoker Does the pt drink ETOH?: Yes Does the pt have substance abuse?: Yes - Immunizations Immunizations are current?: No Immunizations: TDAP >10years/unknown - POLST Patient has POLST: No PD ED PE NORMAL - Vitals Vital signs reviewed: Yes - General General: Alert and oriented X 3, Well developed/nourished, Other (appears in pain and guarding low back ROM. ) - Cardiac Cardiac: RRR, No murmur - Respiratory Respiratory: Clear bilaterally - Abdomen Abdomen: Soft, Non tender - Back Back: No CVA TTP, No spinal TTP, Other (left lower lumbar muscles tender up and down. no rash nor skin sensitivity. Not tender midline. No point tender/trigger. ) - Derm Derm: Normal color, Warm and dry - Neuro Neuro: Alert and oriented X 3, No motor deficit, No sensory deficit, Other (normal knee reflexes) Results - Vitals Vitals: Oxygen O2 Source Room air PD MEDICAL DECISION MAKING - ED course Complexity details: considered differential (acute nonforceful injury back pain without red flags. Can treat symptoms. No rash nor skin sensitivity, so less likely shingles.), d/w patient Departure - Departure Disposition: 01 Home, Self Care Clinical Impression: Acute low back pain Qualifiers: Back pain laterality: unspecified Sciatica presence: without sciatica Qualified Code(s): M54.5 - Low back pain Condition: Stable Record reviewed to determine appropriate education?: Yes Instructions: ED Spasm Back No Trauma Follow-Up: Antoinette Davis ARNP [Primary Care Provider] - [facility] [Provider Group] Prescriptions: Lidocaine Patch 5% [Lidoderm Patch] 1 patch TOP DAILY PRN #10 patch PRN Reason: pain oxyCODONE [Roxicodone] 5 mg PO Q4-6H PRN #18 tablet PRN Reason: Pain diazePAM [Valium] 5 mg PO TID PRN #20 tablet PRN Reason: Spasms Comments: Heat and gentle stretching for the low back. Physical modalities such as massage chiropractic or physical therapy are good for the back. Use the recently prescribed steroid dosing for several days. You can use diazepam rather than your cyclobenzaprine for muscle spasms and hopefully will be more effective. Use Tylenol 500 mg 4 times a day regularly for pain and to that add oxycodone every 6 hours if needed for worse pain. This is intended short-term as hopefully this will improve over several days to a week. Lidocaine patch to area can add help as well. Follow-up with back specialists. Follow-up with your primary care if not improving well as well. I am prescribing a short course of narcotic pain medication for you. These are potentially dangerous and addictive medications that should be used carefully. These medications may constipate you. Take an [id number] stool softener such as docusate twice daily with plenty of water while taking these medications. If you go 24 hours without a bowel movement, take [id number] MiraLAX, per package instructions. Do not drink or drive while taking these medications. If you received narcotic or sedating medications while in the emergency department do not drive for 24 hours. Store this medication in a safe, secure place and out of reach of children. It is a violation of federal law to give or sell this medication to another person or to use in a manner other than prescribed. The ED will not refill narcotic prescriptions, including prescriptions lost or stolen. You can dispose of unwanted medications at the [facility] office or at several pharmacies such as [facility]. Discharge Date/Time: 04/18/21 13:19
[2021-04-18] MEDS ORDERED: KETOROLAC 30 MG/ML VIAL IM STA (12:08)
[2021-04-18] MEDS ORDERED: CHERRY SYRUP 10 ML UDC PO ONE (12:09)
[2021-04-18] MEDS ORDERED: LIDOCAINE PATCH 5% TOP STA (12:09)
[2021-04-18] MEDS ORDERED: ACETAMINOPHEN 325 MG TABLET PO STA (12:09)
[2021-04-18] MEDS ORDERED: DEXAMETHASONE 10 MG/ML VIAL PO STA (12:09)
[2021-04-18 13:09] VITALS: BP 152/90
== END 2021-04-18 13:19 | disposition home or self-care (01) ==
LOC: ED 11:18
DX: M54.5 Low back pain (principal); F17.200 Nicotine dependence, unspecified, uncomplicated
CPT/HCPCS: 96372; 99283; 99284; A9270

== ENCOUNTER 2021-08-26 16:11 | Outpatient (CLI) | payer OTHER | END 2021-08-26 16:12 | disposition EMS.NT | LOC: EMS 16:11 | DX: R42 Dizziness and giddiness (principal) ==

== ENCOUNTER 2021-10-02 08:00 | Outpatient (CLI) | payer OTHER ==
--- NOTE | 2021-10-02 10:16 | XRAY Report ---
PROCEDURE: Chest 2 View X-Ray INDICATIONS: COUGH TECHNIQUE: 2 view(s) of the chest. COMPARISON: None. FINDINGS: Surgical changes and devices: None. Lungs and pleura: No pleural effusions or pneumothorax. Lungs are clear. Mediastinum: Mediastinal contours are normal. Heart size is normal. Bones and chest wall: No suspicious bony abnormalities. Soft tissues appear unremarkable. IMPRESSION: No acute cardiopulmonary process demonstrated radiographically. Reviewed by: Daniel Garcia MD on 10/02/2021 10:15 AM [facility] Approved by: Daniel Garcia MD on 10/02/2021 10:15 AM [facility] Station ID: [id number]
== END 2021-10-02 23:59 | disposition home or self-care (01) ==
LOC: DI.S 08:00
PROVIDERS: ATTEND Registered Nurse
DX: R05.9 Cough, unspecified (principal); Z20.822 Contact with and (suspected) exposure to COVID-19

== ENCOUNTER 2021-11-22 11:17 | Outpatient (CLI) | payer OTHER ==
[2021-11-22 15:00] LABS: BASOPHILS % (AUTO) 0.8 %; EOSINOPHILS # (AUTO) 0.2 10^3/uL (0.0-0.7); HCT - HEMATOCRIT 46.8 % (37.0-47.0); HGB - HEMOGLOBIN 15.2 g/dL (12.0-16.0); LYMPHOCYTES # (AUTO) 2.3 10^3/uL (1.5-3.5); LYMPHOCYTES % (AUTO) 47.3 %; MEAN CORPUSCULAR HEMOGLOBIN 29.5 pg (27.0-31.0); MEAN CORPUSCULAR HGB CONC 32.5 g/dL (32.0-36.0); MEAN CORPUSCULAR VOLUME 90.9 fL (81.0-99.0); MEAN PLATELET VOLUME 10.8 fL (7.9-10.8); MONOCYTES # (AUTO) 0.4 10^3/uL (0.0-1.0); MONOCYTES % (AUTO) 7.7 %; NEUTROPHILS % (AUTO) 41.2 %; PLT - PLATELET COUNT 204 10^3/uL (130-450); RED BLOOD COUNT 5.15 10^6/uL (4.20-5.40); RED CELL DISTRIBUTION WIDTH 12.8 % (12.0-15.0)
[2021-11-22 15:34] LABS: ALBUMIN 4.2 g/dL (3.2-5.5); ALBUMIN/GLOBULIN RATIO 1.3 (1.0-2.2); ALKALINE PHOSPHATASE 51 IU/L (42-121); ALT ALANINE AMINOTRANSFERASE 31 IU/L (10-60); AST ASPARTATE AMINOTRANSFERASE 23 IU/L (10-42); BILIRUBIN,TOTAL 0.6 mg/dL (0.2-1.0); BUN - BLOOD UREA NITROGEN 20 mg/dL (6-20); CALCIUM 9.2 mg/dL (8.5-10.3); CARBON DIOXIDE - CO2 26 mmol/L (21-32); CHLORIDE 103 mmol/L (101-111); CHOL/HDL RATIO 4.5 (<4.4); CHOLESTEROL 195 mg/dL; CREATININE 0.9 mg/dL (0.4-1.0); GFR - MDRD 64 (>89); GLUCOSE 102 mg/dL (70-100); HDL CHOLESTEROL 43 mg/dL; LDL CHOLESTEROL,CALCULATED 112 mg/dL; LDL/HDL RATIO 2.6 (<4.4); POTASSIUM 4.2 mmol/L (3.5-5.0); SODIUM 136 mmol/L (135-145); TOTAL PROTEIN 7.5 g/dL (6.7-8.2); TRIGLYCERIDES 199 mg/dL; VLDL CHOLESTEROL 40 mg/dL
[2021-11-22 16:04] LABS: THYROID STIMULATING HORMONE 2.75 uIU/mL (0.34-5.60)
== END 2021-11-22 11:18 | disposition home or self-care (01) ==
LOC: LAB.S 11:17
PROVIDERS: ATTEND Registered Nurse
DX: E04.2 Nontoxic multinodular goiter (principal); E78.5 Hyperlipidemia, unspecified; R03.0 Elevated blood-pressure reading, without diagnosis of hypertension; F41.9 Anxiety disorder, unspecified; F32.A Depression, unspecified; Z79.890 Hormone replacement therapy
CPT/HCPCS: 36415; 80053; 80061; 82670; 82679; 83721; 84443; 85025

== ENCOUNTER 2022-06-03 13:07 | Outpatient (CLI) | payer OTHER ==
--- NOTE | 2022-06-04 11:33 | Mammography Report ---
BILATERAL DIGITAL SCREENING MAMMOGRAM 3D/2D: 06/03/2022 CLINICAL: Routine screening. Comparison is made to exams dated: 10/18/2019 mammogram, 10/14/2016 mammogram, 03/21/2014 mammogram, mammogram, and 06/11/2011 mammogram - [facility]. There are scattered areas of fibroglandular density in both breasts (category b / 25%-50% glandular t issue). No significant masses, calcifications, or other findings are seen in either breast. There has been no significant interval change. IMPRESSION: NEGATIVE There is no mammographic evidence of malignancy. A 1 year screening mammogram is recommended. Based on the Tyrer Cuzick model (a risk assessment model) the patients lifetime risk is 8.7% and her 10 year risk is 3.4%. According to the ACR, ACS, and NCCN guidelines, an annual breast MRI exam chacha g with mammogram is recommended if the patients lifetime risk is 20% or greater. This exam was interpreted at Station ID: [id number]. NOTE: For mammograms, a report in lay terms will be sent to the patient. Approximately 15% of breast malignancies will not be visualized mammographically. In the management of a palpable breast mass, a negative mammogram must not discourage biopsy of a clinically suspicious lesion. Electronically Signed By: Guerrero Wallace M.D. acr/penrad:06/03/2022 15:21:27 ACR BI-RADS Category 1: Negative 3341F PARENCHYMAL PATTERN: (A) - The breast(s) demonstrate(s) scattered fibroglandular densities. BI-RADS CATEGORY: (1) - 1 RECOMMENDATION: (ANNUAL) - Recommend routine annual screening mammography. [id number] 1 year screening LATERALITY: (B)
== END 2022-06-03 13:08 | disposition home or self-care (01) ==
LOC: DI.S 13:07
PROVIDERS: ATTEND Registered Nurse
DX: Z12.31 Encounter for screening mammogram for malignant neoplasm of breast (principal)

== ENCOUNTER 2023-06-02 13:27 | Outpatient (CLI) | payer OTHER ==
[2023-06-02 20:10] LABS: BASOPHILS % (AUTO) 0.5 %; EOSINOPHILS # (AUTO) 0.2 10^3/uL (0.0-0.7); EOSINOPHILS % (AUTO) 2.6 %; HCT - HEMATOCRIT 43.3 % (37.0-47.0); HGB - HEMOGLOBIN 14.4 g/dL (12.0-16.0); LYMPHOCYTES # (AUTO) 2.8 10^3/uL (1.5-3.5); LYMPHOCYTES % (AUTO) 46.5 %; MEAN CORPUSCULAR HEMOGLOBIN 30.3 pg (27.0-31.0); MEAN CORPUSCULAR HGB CONC 33.3 g/dL (32.0-36.0); MEAN PLATELET VOLUME 11.1 fL (7.9-10.8); MONOCYTES # (AUTO) 0.5 10^3/uL (0.0-1.0); MONOCYTES % (AUTO) 7.4 %; NEUTROPHILS # (AUTO) 2.6 10^3/uL (1.5-6.6); NEUTROPHILS % (AUTO) 42.8 %; PLT - PLATELET COUNT 184 10^3/uL (130-450); RED BLOOD COUNT 4.76 10^6/uL (4.20-5.40); RED CELL DISTRIBUTION WIDTH 13.2 % (12.0-15.0); WHITE BLOOD COUNT 6.1 x10^3/uL (4.8-10.8)
[2023-06-02 20:23] LABS: ALBUMIN 4.6 g/dL (3.2-5.5); ALBUMIN/GLOBULIN RATIO 1.9 (1.0-2.2); ALKALINE PHOSPHATASE 70 IU/L (42-121); ALT ALANINE AMINOTRANSFERASE 32 IU/L (10-60); AST ASPARTATE AMINOTRANSFERASE 22 IU/L (10-42); BILIRUBIN,TOTAL 0.6 mg/dL (0.2-1.0); BUN - BLOOD UREA NITROGEN 16 mg/dL (6-20); CALCIUM 9.8 mg/dL (8.5-10.3); CARBON DIOXIDE - CO2 29 mmol/L (21-32); CHLORIDE 105 mmol/L (101-111); CHOL/HDL RATIO 6.3 (<4.4); CHOLESTEROL 244 mg/dL; CREATININE 0.9 mg/dL (0.6-1.3); GFR - MDRD 64 (>89); GLUCOSE 97 mg/dL (74-104); HDL CHOLESTEROL 39 mg/dL; LDL CHOLESTEROL,CALCULATED 157 mg/dL; POTASSIUM 4.4 mmol/L (3.5-4.5); SODIUM 140 mmol/L (135-145); TRIGLYCERIDES 242 mg/dL (48-352); VLDL CHOLESTEROL 48 mg/dL
[2023-06-02 20:37] LABS: THYROID STIMULATING HORMONE 2.01 uIU/mL (0.34-5.60)
== END 2023-06-02 13:28 | disposition home or self-care (01) ==
LOC: LAB.S 13:27
PROVIDERS: ATTEND Registered Nurse
DX: Z13.228 Encounter for screening for other metabolic disorders (principal); Z13.220 Encounter for screening for lipoid disorders; Z13.29 Encounter for screening for other suspected endocrine disorder; Z13.0 Encounter for screening for diseases of the blood and blood-forming organs and certain disorders involving the immune mechanism
CPT/HCPCS: 36415; 80053; 80061; 83721; 84443; 85025

== ENCOUNTER 2023-06-16 14:22 | Outpatient (CLI) | payer OTHER ==
--- NOTE | 2023-06-16 14:49 | DEXA Report ---
PROCEDURE: Dexa Spine and/or Hip INDICATIONS: POST MENOPAUSAL TECHNIQUE: Dual energy x-ray absorptiometry (DXA) was performed on a RobArt System. Regions measur ed are the AP Spine, femoral neck, and if needed forearm. COMPARISON: None FINDINGS: Lumbar Spine: Bone Mineral Density 1.212 g/cm/cm,T score 0.3. Left Femoral Neck: Bone Mineral Density 0.933 g/cm/cm, T score -0.8. Left Hip: Bone Mineral Density 1.024 g/cm/cm,T score 0.1. (T score greater or equal to -1.0: NORMAL) (T score from -1.1 to -2.4: OSTEOPENIA) (T score less than or equal to -2.5 to: OSTEOPOROSIS) Impression: By WHO criteria, this patient has normal bone mineral density Patients with diagnosis of osteoporosis or osteopenia should have regular bone mineral density assess ment. For those eligible for Medicare, routine testing is allowed once every 2 years. Testing frequ ency can be increased for patients who have rapidly progressing disease or for those who are receivin g medical therapy to restore bone mass. Reviewed by: Gume Emanuel MD on 06/16/2023 2:48 PM PDT Approved by: Gume Emanuel MD on 06/16/2023 2:48 PM PDT Station ID: [id number]
== END 2023-06-16 14:23 | disposition home or self-care (01) ==
LOC: DI 14:22
PROVIDERS: ATTEND Registered Nurse
DX: Z78.0 Asymptomatic menopausal state (principal)

== ENCOUNTER 2024-01-16 10:09 | Outpatient (CLI) | payer OTHER ==
--- NOTE | 2024-01-17 02:12 | XRAY Report ---
PROCEDURE: Knee 4+V RT INDICATIONS: PAIN OF RIGHT KNEE JOINT,JOINT EFFUSION TECHNIQUE: 3 views of the knee was obtained. COMPARISON: None FINDINGS: Bones: No fractures or dislocations. No suspicious bony lesions. Soft tissues: Mild knee joint effusion. No suspicious soft tissue calcifications or masses. IMPRESSION: Small joint effusion Reviewed by: Omi Hernandez MD on 01/17/2024 1:10 AM [facility] Approved by: Omi Hernandez MD on 01/17/2024 1:10 AM [facility] Station ID: [id number]
== END 2024-01-16 10:10 | disposition home or self-care (01) ==
LOC: DI.S 10:09
PROVIDERS: ATTEND Registered Nurse
DX: M25.561 Pain in right knee (principal); M25.461 Effusion, right knee

== ENCOUNTER 2024-03-02 12:29 | Outpatient (CLI) | payer OTHER ==
[2024-03-02 12:43] LABS: BASOPHILS % (AUTO) 0.5 %; EOSINOPHILS # (AUTO) 0.3 10^3/uL (0.0-0.7); EOSINOPHILS % (AUTO) 3.2 %; HCT - HEMATOCRIT 41.5 % (37.0-47.0); HGB - HEMOGLOBIN 13.6 g/dL (12.0-16.0); LYMPHOCYTES # (AUTO) 3.2 10^3/uL (1.5-3.5); LYMPHOCYTES % (AUTO) 41.1 %; MEAN CORPUSCULAR HEMOGLOBIN 29.9 pg (27.0-31.0); MEAN CORPUSCULAR HGB CONC 32.8 g/dL (32.0-36.0); MEAN CORPUSCULAR VOLUME 91.2 fL (81.0-99.0); MEAN PLATELET VOLUME 10.6 fL (7.9-10.8); MONOCYTES # (AUTO) 0.6 10^3/uL (0.0-1.0); MONOCYTES % (AUTO) 7.7 %; NEUTROPHILS # (AUTO) 3.7 10^3/uL (1.5-6.6); NEUTROPHILS % (AUTO) 47.4 %; PLT - PLATELET COUNT 213 10^3/uL (130-450); RED BLOOD COUNT 4.55 10^6/uL (4.20-5.40); RED CELL DISTRIBUTION WIDTH 12.7 % (12.0-15.0); WHITE BLOOD COUNT 7.8 x10^3/uL (4.8-10.8)
[2024-03-02 13:14] LABS: ALBUMIN 4.4 g/dL (3.2-5.5); ALBUMIN/GLOBULIN RATIO 1.5 (1.0-2.2); ALKALINE PHOSPHATASE 65 IU/L (42-121); ALT ALANINE AMINOTRANSFERASE 16 IU/L (10-60); AST ASPARTATE AMINOTRANSFERASE 14 IU/L (10-42); BILIRUBIN,TOTAL 0.4 mg/dL (0.2-1.0); BUN - BLOOD UREA NITROGEN 29 mg/dL (6-20); CALCIUM 9.4 mg/dL (8.5-10.3); CARBON DIOXIDE - CO2 28 mmol/L (21-32); CHLORIDE 104 mmol/L (101-111); CHOL/HDL RATIO 5.9 (<4.4); CHOLESTEROL 254 mg/dL; CREATININE 0.9 mg/dL (0.6-1.3); GFR - MDRD 64 (>89); GLUCOSE 94 mg/dL (74-104); HDL CHOLESTEROL 43 mg/dL; POTASSIUM 4.1 mmol/L (3.5-4.5); SODIUM 138 mmol/L (135-145); TOTAL PROTEIN 7.4 g/dL (6.4-8.9); TRIGLYCERIDES 488 mg/dL
[2024-03-02 13:15] LABS: THYROID STIMULATING HORMONE 3.24 uIU/mL (0.34-5.60)
[2024-03-02 13:33] LABS: LDL CHOLESTEROL,DIRECT 141 mg/dL (75-193); LDLD/HDL RATIO 3.3 (<4.4)
[2024-03-02 13:41] LABS: RHEUMATOID FACTOR NEGATIVE (Negative)
== END 2024-03-02 12:30 | disposition home or self-care (01) ==
LOC: LAB 12:29
PROVIDERS: ATTEND Physician Assistant Surgical
DX: M25.461 Effusion, right knee (principal); Z13.228 Encounter for screening for other metabolic disorders; Z13.220 Encounter for screening for lipoid disorders; Z13.29 Encounter for screening for other suspected endocrine disorder; Z13.0 Encounter for screening for diseases of the blood and blood-forming organs and certain disorders involving the immune mechanism
CPT/HCPCS: 36415; 80053; 80061; 83721; 84443; 85025; 86038; 86430

== ENCOUNTER 2024-03-19 16:19 | Outpatient (CLI) | payer OTHER ==
--- NOTE | 2024-03-22 09:34 | MRI Report ---
PROCEDURE: Knee RT WO INDICATIONS: R KNEE EFFUSION TECHNIQUE: Noncontrast sagittal PD fast spin echo and T2 fast spin echo with fat saturation, sagittal 3-D gradie nt sequence with fat saturation; coronal T1 spin echo and PD fast spin echo with fat saturation, and axial PD fast spin echo with fat saturation through the knee. COMPARISON: None. FINDINGS: Image quality: Excellent. Menisci: There is mild medial extrusion of the medial meniscus. Linear oblique high T2 signal intensi ty traverses the inner, middle, peripheral thirds of the lateral meniscal body and posterior horn, de monstrating inferior articular surface extension, indicating oblique tearing. Cruciate ligaments: The anterior and posterior cruciate ligaments appear intact. Medial structures: The medial collateral ligament appears intact. The posterior oblique ligament, s emimembranosus tendon insertions, and oblique popliteal ligament, and meniscocapsular junction appear intact. Visualized portions of the pes anserinus tendons appear normal. No abnormal bursal fluid. Lateral structures: The lateral collateral ligament, long and short heads of the biceps femoris tend on appear intact. The popliteus tendon appears normal; the popliteofibular ligament appears intact. The posterosuperior and anteroinferior popliteomeniscal fascicles appear intact. The arcuate and fa bellofibular ligaments appear intact, around the lateral inferior geniculate artery. Iliotibial band appears normal. Anterior structures: The quadriceps and patellar tendons appear intact. Patellar alignment is gary l. No femoral trochlear dysplasia or ventral trochlear prominence. No edema in the infrapatellar fa t pad. Bones and cartilage: No bone marrow contusions or fractures. There is mild ill-defined T2 signal el evation within the mid and posterior weightbearing aspects of the medial femoral condyle. There is mi ld tricompartmental periarticular osteophyte formation. Severe articular cartilage loss diffusely ove rlies the weightbearing aspects of the medial femoral condyle and medial tibial plateau. Mild articul ar cartilage loss diffusely overlies the weightbearing aspects of the lateral femoral condyle and lat eral tibial plateau. Severe articular cartilage loss overlies the posterior weightbearing aspect of t he lateral femoral condyle. Moderate articular cartilage loss overlies the medial and lateral patella r facets. Joint space: There is a moderate knee joint effusion. No Hernandez's cyst. Normal appearing synovial pl icae are incidentally noted. IMPRESSION: 1. Lateral meniscal tearing. 2. Tricompartmental osteoarthritis with associated articular cartilage loss. 3. Knee joint effusion. Reviewed by: Amber Leigh MD on 03/22/2024 9:33 AM PDT Approved by: Amber Leigh MD on 03/22/2024 9:33 AM PDT Station ID: [id number]
== END 2024-03-19 16:20 | disposition home or self-care (01) ==
LOC: DI 16:19
PROVIDERS: ATTEND Physician Assistant Surgical
DX: M25.461 Effusion, right knee (principal); S83.281A Other tear of lateral meniscus, current injury, right knee, initial encounter; M17.11 Unilateral primary osteoarthritis, right knee; M94.261 Chondromalacia, right knee